=== PATIENT | female | born 1995 | race African-American/Black ===

== ENCOUNTER 2021-11-08 00:09 | Emergency (ER) | payer SELFPAY ==
[2021-11-08 00:57] VITALS: BP 110/60; PULSE 63; TEMP 98.3; BMI 32.9
== END 2021-11-08 02:25 | disposition left against medical advice (07) ==
LOC: JER 00:09
DX: R10.9 Unspecified abdominal pain (principal)
CPT/HCPCS: 99281-25

== ENCOUNTER 2023-01-14 05:01 | Emergency (ER) | payer OTHER ==
[2023-01-14 05:11] VITALS: BP 143/83; PULSE 85; RESP 18; TEMP 98; BMI 32.5
[2023-01-14] MEDS ORDERED: ACETAMINOPHEN 500 MG TABLET (FP) PO ONE (05:34)
[2023-01-14] MEDS ORDERED: METHOCARBAMOL 500 MG TABLET PO ONE (05:34)
[2023-01-14] MEDS ORDERED: METHOCARBAMOL 500 MG TABLET ONE (05:37)
[2023-01-14] MEDS ORDERED: ACETAMINOPHEN 325 MG TABLET (FP) ONE (05:37)
== END 2023-01-14 06:47 | disposition home or self-care (01) ==
LOC: JER 05:01
DX: M54.2 Cervicalgia (principal); V87.7XXA Person injured in collision between other specified motor vehicles (traffic), initial encounter
CPT/HCPCS: 99283-25